=== PATIENT | male | born 1975 | race Asian ===

== ENCOUNTER 2017-01-21 10:46 | Emergency (ER) | payer MEDICAID ==
[~2017-01-21] VITALS: Ht 165.1 cm; Wt 81.6 kg
[2017-01-21 11:38] VITALS: BP 130/52
== END 2017-01-21 11:51 | disposition home or self-care (01) ==
LOC: ER 10:46
DX: H52.7 Unspecified disorder of refraction (principal)

== ENCOUNTER 2021-06-25 13:39 | Inpatient (IN) | payer MEDICAID ==
[~2021-06-25] VITALS: Ht 165.1 cm; Wt 77.7 kg
[2021-06-25] MEDS: SODIUM CHLORIDE 0.9% 1,000 ML IV SCH (02:35)
[2021-06-25 15:11] LABS: Basophils # (auto) 0 10 ^3/uL (0-0.2); Basophils % (auto) 0.1 % (0.0-2.0); Eosinophils # (auto) 0 10 ^3/uL (0-0.8); Eosinophils % (auto) 0.1 % (0.0-7.0); Hematocrit 34.1 % (41.0-53.0); Hemoglobin 11.5 g/dL (13.5-17.5); Lymphocytes # (auto) 1.2 10 ^3/uL (0.4-5.4); Lymphocytes % (auto) 12.6 % (10.0-50.0); Mean Corpuscular Hemoglobin 27.5 pg (28.0-32.0); Mean Corpuscular Hgb Conc. 33.7 g/dL (32.0-36.0); Mean Corpuscular Volume 81.5 fL (80.0-100.0); Monocytes # (auto) 0.8 10 ^3/uL (0-1.3); Monocytes % (auto) 8.5 % (0.0-12.0); Neutrophils # (auto) 7.6 10 ^3/uL (1.6-8.6); Neutrophils % (auto) 78.7 % (37.0-80.0); Nucleated Red Blood Cells % 0.1 %; Red Blood Cells 4.19 10^6/uL (4.5-5.90); Red Cell Distribution Width 15.6 % (11.8-14.3); White Blood Cell 9.6 10^3/uL (4.4-10.8)
[2021-06-25 15:26] LABS: Albumin 3.2 g/dL (3.4-5.0); Calcium 8.3 mg/dL (8.5-10.1); Potassium 3.7 mmol/L (3.5-5.1)
[2021-06-25 15:28] LABS: BUN/Creatinine Ratio 20.5
[2021-06-25 15:30] LABS: Bilirubin, Total 0.8 mg/dL (0.2-1.0); Total Protein 7.7 g/dL (6.4-8.2)
[2021-06-25] MEDS ORDERED: cefTRIAXone 1GM/50ML D5W 50 ML IV ONE (17:15)
[2021-06-25] MEDS ORDERED: metroNIDAZOLE 500MG/100ML 100 ML IV ONE (17:15)
[2021-06-25] MEDS ORDERED: ONDANSETRON HCL 4 MG/2 ML VIAL IV ONE (17:30)
[2021-06-25] MEDS ORDERED: MORPHINE SULFATE 4 MG/ML SYR/VIAL IV ONE (17:30)
[2021-06-25] MEDS ORDERED: ONDANSETRON HCL 4 MG/2 ML VIAL IV PRN (18:15)
[2021-06-25] MEDS ORDERED: MORPHINE SULFATE 4 MG/ML SYR/VIAL IV PRN (18:15)
[2021-06-25] MEDS ORDERED: MORPHINE SULFATE INJECTION 2 MG/ML SYRG IV PRN (18:15)
[2021-06-25] MEDS ORDERED: DEXTROSE (50%) 50ML SYRG IV PRN (19:15)
[2021-06-25 20:25] LABS: INR 1.21 (0.9-1.15)
[2021-06-25 20:35] LABS: Blood Alcohol < 3.0 mg/dL (0-5); Cholesterol 163 mg/dL (< 200); Lipase 247 U/L (73-393)
[2021-06-25 20:37] LABS: Bilirubin, Total 0.5 mg/dL (0.2-1.0); HDL Cholesterol 61 mg/dL (40-59); LDL Cholesterol 89 mg/dL (< 100); Triglycerides 55 mg/dL (< 150)
[2021-06-25] MEDS ORDERED: PANTOPRAZOLE 40 MG/10 ML VIAL INJ IV ONE ×2 (22:30→23:15)
[2021-06-25] MEDS ORDERED: LORazepam 2MG/ML-1ML VIAL IM ONE (23:15)
[2021-06-25 23:45] VITALS: BP 103/63
[2021-06-25] MEDS: ACCU-CHEK COMFORT CURVE STRIP VI SCH (23:57)
[2021-06-26] MEDS: InsuLIN REG 1unit/0.01ml Soln (100units/ml) SC SCH ×4 (00:01→17:11)
[2021-06-26] MEDS ORDERED: BRIM0.2S17 EACHEYE (00:12)
[2021-06-26] MEDS ORDERED: DORZ2SOL18 (00:12)
[2021-06-26 00:18] VITALS: BP 103/63
[2021-06-26 04:44] VITALS: BP 99/56
[2021-06-26] MEDS: SODIUM CHLORIDE 0.9% 1,000 ML IV SCH ×4 (06:00→19:15)
[2021-06-26] MEDS: ACCU-CHEK COMFORT CURVE STRIP VI SCH ×3 (06:04→17:11)
[2021-06-26] MEDS: metroNIDAZOLE 500MG/100ML 100 ML IV SCH ×3 (06:05→22:08)
[2021-06-26 06:36] LABS: Basophils # (auto) 0 10 ^3/uL (0-0.2); Basophils % (auto) 0.3 % (0.0-2.0); Eosinophils # (auto) 0 10 ^3/uL (0-0.8); Eosinophils % (auto) 0.4 % (0.0-7.0); Hematocrit 28.9 % (41.0-53.0); Hemoglobin 9.9 g/dL (13.5-17.5); Lymphocytes # (auto) 2.4 10 ^3/uL (0.4-5.4); Lymphocytes % (auto) 22.4 % (10.0-50.0); Mean Corpuscular Hemoglobin 28.1 pg (28.0-32.0); Mean Corpuscular Hgb Conc. 34.2 g/dL (32.0-36.0); Mean Corpuscular Volume 82.3 fL (80.0-100.0); Monocytes # (auto) 1.3 10 ^3/uL (0-1.3); Monocytes % (auto) 12.3 % (0.0-12.0); Neutrophils % (auto) 64.6 % (37.0-80.0); Nucleated Red Blood Cells % 0.1 %; Red Blood Cells 3.52 10^6/uL (4.5-5.90); Red Cell Distribution Width 15.4 % (11.8-14.3); White Blood Cell 10.9 10^3/uL (4.4-10.8)
[2021-06-26 06:53] LABS: Potassium 3.6 mmol/L (3.5-5.1)
[2021-06-26 07:04] LABS: Albumin 2.5 g/dL (3.4-5.0); BUN/Creatinine Ratio 18.7; Bilirubin, Total 0.7 mg/dL (0.2-1.0); Calcium 7.4 mg/dL (8.5-10.1); Total Protein 6.4 g/dL (6.4-8.2)
[2021-06-26 09:00] VITALS: BP 93/51
[2021-06-26] MEDS: ENOXAPARIN SOD 40 MG/0.4 ML SYRINGE SC SCH (09:43)
[2021-06-26] MEDS: PANTOPRAZOLE 40 MG/10 ML VIAL INJ IV SCH ×2 (09:43→22:08)
[2021-06-26] MEDS: cefTRIAXone 1GM/50ML D5W 50 ML IV SCH (09:43)
[2021-06-26] MEDS ORDERED: PANTOPRAZOLE 40 MG/10 ML VIAL INJ IV SCH (10:00)
[2021-06-26 13:00] VITALS: BP 90/52
[2021-06-26 16:35] VITALS: BP 99/57
[2021-06-26 22:00] VITALS: BP 89/60
[2021-06-27] MEDS: ACCU-CHEK COMFORT CURVE STRIP VI SCH ×5 (00:16→23:25)
[2021-06-27] MEDS: SODIUM CHLORIDE 0.9% 1,000 ML IV SCH ×2 (03:35→11:55)
[2021-06-27 05:00] VITALS: BP 96/59
[2021-06-27] MEDS: metroNIDAZOLE 500MG/100ML 100 ML IV SCH ×3 (06:08→21:26)
[2021-06-27] MEDS: InsuLIN REG 1unit/0.01ml Soln (100units/ml) SC SCH ×5 (06:09→23:24)
[2021-06-27 09:00] VITALS: BP 99/62
[2021-06-27] MEDS ORDERED: CLINIMIX PER PHARMACY 0 ML IV SCH (09:15)
[2021-06-27] MEDS: PANTOPRAZOLE 40 MG/10 ML VIAL INJ IV SCH ×2 (10:48→21:26)
[2021-06-27] MEDS: cefTRIAXone 1GM/50ML D5W 50 ML IV SCH (10:48)
[2021-06-27] MEDS: ENOXAPARIN SOD 40 MG/0.4 ML SYRINGE SC SCH (10:49)
[2021-06-27] MEDS ORDERED: GASTROGRAFIN 120 ML SOL ONE (11:40)
[2021-06-27 12:04] LABS: Potassium 3.7 mmol/L (3.5-5.1)
[2021-06-27 12:21] LABS: Albumin 2.4 g/dL (3.4-5.0); Bilirubin, Total 0.6 mg/dL (0.2-1.0); Calcium 7.9 mg/dL (8.5-10.1); Magnesium 2.3 mg/dL (1.6-2.6); Phosphorus 3.1 mg/dL (2.5-4.90); Pre Albumin 8.8 mg/dL (20.0-40.0); Total Protein 6.4 g/dL (6.4-8.2)
[2021-06-27 13:00] VITALS: BP 89/51
[2021-06-27 13:45] LABS: Hepatitis A Ab IgM Negative
[2021-06-27 13:46] LABS: Hepatitis B Core IgM Negative; Hepatitis C Antibody Negative (Negative)
[2021-06-27 17:00] VITALS: BP 89/52
[2021-06-27] MEDS ORDERED: ALBUMIN 25% 100 ML IV ONE (18:15)
[2021-06-27] MEDS: AMINO ACID INFUSION IN D10W 1,000 ML IV SCH (19:42)
[2021-06-27 22:00] VITALS: BP 98/50
[2021-06-28] VITALS (8 sets, daily range): BP systolic 78–94; BP diastolic 40–55
[2021-06-28] MEDS ORDERED: DEXTROSE (50%) 50ML SYRG IV SCH
[2021-06-28 00:14] LABS: Urine Bacteria NONE SEEN /hpf (None Seen); Urine Blood Negative /uL (Negative); Urine Mucus FEW (None Seen); Urine Specific Gravity 1.036 (1.001-1.035); Urine WBC 7 /hpf (0 - 3)
[2021-06-28 00:22] LABS: Amphetamine Screen, Urine NEGATIVE (NEGATIVE); Barbiturate Scree,Urine NEGATIVE (NEGATIVE); Benzodiazephine Screen, Urine NEGATIVE (NEGATIVE); Cannabinoid Screen, Urine NEGATIVE (NEGATIVE); Cocaine Screen, Urine NEGATIVE (NEGATIVE); Opiate Scree,Urine NEGATIVE (NEGATIVE); Phencyclidine Screen, Urine NEGATIVE (NEGATIVE)
[2021-06-28] MEDS: SODIUM CHLORIDE 0.9% 1,000 ML IV SCH ×4 (00:28→21:15)
[2021-06-28] MEDS: metroNIDAZOLE 500MG/100ML 100 ML IV SCH ×3 (05:24→22:07)
[2021-06-28] MEDS: ACCU-CHEK COMFORT CURVE STRIP VI SCH ×4 (05:25→23:32)
[2021-06-28] MEDS: InsuLIN REG 1unit/0.01ml Soln (100units/ml) SC SCH ×4 (05:30→23:33)
[2021-06-28 07:15] LABS: Albumin 2.6 g/dL (3.4-5.0); BUN/Creatinine Ratio 25.8; Bilirubin, Total 0.6 mg/dL (0.2-1.0); Calcium 7.4 mg/dL (8.5-10.1); Phosphorus 1.6 mg/dL (2.5-4.90)
[2021-06-28] MEDS ORDERED: LIDOCAINE VISCOUS 2% 15ML UD ONE (08:20)
[2021-06-28] MEDS ORDERED: POTASSIUM CHL 20MEQ/100ML 100 ML IV ONE (08:45)
[2021-06-28] MEDS: cefTRIAXone 1GM/50ML D5W 50 ML IV SCH (09:44)
[2021-06-28] MEDS: ENOXAPARIN SOD 40 MG/0.4 ML SYRINGE SC SCH (09:45)
[2021-06-28] MEDS: PANTOPRAZOLE 40 MG/10 ML VIAL INJ IV SCH ×2 (09:46→22:05)
[2021-06-28] MEDS ORDERED: POTASSIUM PHOSPHATE 44 MEQ in D5W 5% 250 ML IV ONE (11:00)
[2021-06-28] MEDS ORDERED: METOCLOPRAMIDE HCL 5MG/ml INJ 2ml VIAL IV PRN (11:30)
[2021-06-28] MEDS ORDERED: ONDANSETRON HCL 4 MG/2 ML VIAL IV PRN (11:30)
[2021-06-28] MEDS ORDERED: fentaNYL CITRATE 100 MCG/2 ML VL IV PRN (11:30)
[2021-06-28] MEDS ORDERED: ePHEDrine SULFATE 50 MG/ML AMP IV PRN (11:30)
[2021-06-28] MEDS: SUCRALFATE 1 GM/10 ML ORAL SUSP PO SCH ×3 (12:37→22:05)
[2021-06-28] MEDS ORDERED: SODIUM CHLORIDE 0.9% 1,000 ML IV ONE (17:00)
[2021-06-28 18:08] LABS: Hemoglobin 8.1 g/dL (13.5-17.5)
[2021-06-28 18:10] LABS: Hematocrit 24.4 % (41.0-53.0)
[2021-06-28] MEDS: AMINO ACID INFUSION IN D10W 1,000 ML IV SCH ×2 (19:49→20:00)
[2021-06-29] VITALS (8 sets, daily range): BP systolic 74–101; BP diastolic 42–58
[2021-06-29] MEDS: SODIUM CHLORIDE 0.9% 1,000 ML IV SCH ×3 (05:52→19:45)
[2021-06-29] MEDS: ACCU-CHEK COMFORT CURVE STRIP VI SCH ×3 (06:04→17:51)
[2021-06-29] MEDS: InsuLIN REG 1unit/0.01ml Soln (100units/ml) SC SCH ×3 (06:05→17:50)
[2021-06-29] MEDS: metroNIDAZOLE 500MG/100ML 100 ML IV SCH ×2 (06:06→14:25)
[2021-06-29 06:27] LABS: Basophils # (auto) 0 10 ^3/uL (0-0.2); Eosinophils # (auto) 0 10 ^3/uL (0-0.8); Eosinophils % (auto) 1.3 % (0.0-7.0); Monocytes # (auto) 0.3 10 ^3/uL (0-1.3); Neutrophils # (auto) 1.8 10 ^3/uL (1.6-8.6); Nucleated Red Blood Cells % 0.1 %
[2021-06-29 06:30] LABS: Basophils % (auto) 0.2 % (0.0-2.0); Hematocrit 24.3 % (41.0-53.0); Hemoglobin 8.3 g/dL (13.5-17.5); Lymphocytes # (auto) 0.9 10 ^3/uL (0.4-5.4); Lymphocytes % (auto) 30.3 % (10.0-50.0); Mean Corpuscular Volume 82.3 fL (80.0-100.0); Monocytes % (auto) 10.6 % (0.0-12.0); Neutrophils % (auto) 57.6 % (37.0-80.0); Red Blood Cells 2.95 10^6/uL (4.5-5.90); Red Cell Distribution Width 15.8 % (11.8-14.3); White Blood Cell 3.1 10^3/uL (4.4-10.8)
[2021-06-29] MEDS: SUCRALFATE 1 GM/10 ML ORAL SUSP PO SCH ×5 (06:34→22:03)
[2021-06-29 06:59] LABS: BUN/Creatinine Ratio 18.7
[2021-06-29 07:00] LABS: Albumin 2.3 g/dL (3.4-5.0); Bilirubin, Total 0.5 mg/dL (0.2-1.0); Calcium 7.1 mg/dL (8.5-10.1); Magnesium 2.2 mg/dL (1.6-2.6); Total Protein 5.2 g/dL (6.4-8.2)
[2021-06-29] MEDS ORDERED: CALCIUM GLUC 1,000mg/50ml-NS 50 ML IV ONE (08:30)
[2021-06-29] MEDS: PANTOPRAZOLE 40 MG/10 ML VIAL INJ IV SCH ×2 (09:40→22:03)
[2021-06-29] MEDS: cefTRIAXone 1GM/50ML D5W 50 ML IV SCH (09:40)
[2021-06-29] MEDS: ENOXAPARIN SOD 40 MG/0.4 ML SYRINGE SC SCH (09:41)
[2021-06-29] MEDS: POTASSIUM CHL 20MEQ/100ML 100 ML IV SCH ×2 (10:42→12:36)
[2021-06-29] MEDS ORDERED: POTASSIUM PHOSPHATE 44 MEQ in D5W 5% 250 ML IV ONE (13:00)
[2021-06-29] MEDS ORDERED: NOREPINEPHRINE 8 MG/250ML KIT 250 ML IV SCH (13:15)
[2021-06-29] MEDS ORDERED: SODIUM CHLORIDE 0.9% 1,000 ML IV ONE (13:45)
[2021-06-29] MEDS ORDERED: PHENYLEPHRINE IV 250 ML IV SCH (16:00)
[2021-06-29] MEDS ORDERED: MIDODRINE HCL 10 MG TAB PO ONE (17:15)
[2021-06-29] MEDS: AMINO ACID INFUSION IN D10W 1,000 ML IV SCH (22:55)
[2021-06-30] MEDS: InsuLIN REG 1unit/0.01ml Soln (100units/ml) SC SCH ×4 (00:49→17:25)
[2021-06-30] MEDS: ACCU-CHEK COMFORT CURVE STRIP VI SCH ×4 (00:49→17:25)
[2021-06-30] MEDS: SODIUM CHLORIDE 0.9% 1,000 ML IV SCH ×4 (02:25→22:56)
[2021-06-30 05:00] VITALS: BP 102/65
[2021-06-30] MEDS: SUCRALFATE 1 GM/10 ML ORAL SUSP PO SCH ×4 (06:10→22:22)
[2021-06-30 06:16] LABS: Basophils # (auto) 0 10 ^3/uL (0-0.2); Basophils % (auto) 0.5 % (0.0-2.0); Eosinophils # (auto) 0.1 10 ^3/uL (0-0.8); Eosinophils % (auto) 3.2 % (0.0-7.0); Hematocrit 26.7 % (41.0-53.0); Hemoglobin 9.1 g/dL (13.5-17.5); Lymphocytes # (auto) 1.1 10 ^3/uL (0.4-5.4); Lymphocytes % (auto) 39.7 % (10.0-50.0); Mean Corpuscular Hemoglobin 27.8 pg (28.0-32.0); Mean Corpuscular Hgb Conc. 34.3 g/dL (32.0-36.0); Mean Corpuscular Volume 80.9 fL (80.0-100.0); Monocytes # (auto) 0.4 10 ^3/uL (0-1.3); Monocytes % (auto) 14.4 % (0.0-12.0); Neutrophils # (auto) 1.2 10 ^3/uL (1.6-8.6); Neutrophils % (auto) 42.2 % (37.0-80.0); Nucleated Red Blood Cells % 0.1 %; Red Cell Distribution Width 15.5 % (11.8-14.3); White Blood Cell 2.7 10^3/uL (4.4-10.8)
[2021-06-30 06:31] LABS: Potassium 3.2 mmol/L (3.5-5.1)
[2021-06-30 06:47] LABS: Albumin 2.4 g/dL (3.4-5.0); BUN/Creatinine Ratio 8.7; Bilirubin, Total 0.4 mg/dL (0.2-1.0); Calcium 7.5 mg/dL (8.5-10.1); Phosphorus 2.1 mg/dL (2.5-4.90); Total Protein 5.6 g/dL (6.4-8.2)
[2021-06-30] MEDS ORDERED: POTASSIUM PHOSPHATE 44 MEQ in D5W 5% 250 ML IV ONE (08:30)
[2021-06-30] MEDS: PANTOPRAZOLE 40 MG/10 ML VIAL INJ IV SCH ×2 (08:30→22:22)
[2021-06-30] MEDS: cefTRIAXone 1GM/50ML D5W 50 ML IV SCH (08:30)
[2021-06-30 09:00] VITALS: BP 114/67
[2021-06-30] MEDS ORDERED: ZOLPIDEM TARTRATE 5 MG TAB PO PRN (09:15)
[2021-06-30] MEDS ORDERED: MIDODRINE HCL 10 MG TAB PO SCH (10:00)
[2021-06-30 13:00] VITALS: BP 113/64
[2021-06-30 17:00] VITALS: BP 101/61
[2021-06-30 20:00] VITALS: BP 110/60
[2021-06-30] MEDS: AMINO ACID INFUSION IN D10W 1,000 ML IV SCH (20:48)
[2021-06-30 22:00] VITALS: BP 103/58
[2021-06-30] MEDS: MIDODRINE HCL 10 MG TAB PO SCH (22:23)
[2021-07-01] MEDS: SODIUM CHLORIDE 0.9% 1,000 ML IV SCH ×2 (00:11→11:45)
[2021-07-01] MEDS: ACCU-CHEK COMFORT CURVE STRIP VI SCH ×3 (00:21→12:00)
[2021-07-01 05:00] VITALS: BP 95/63
[2021-07-01] MEDS: InsuLIN REG 1unit/0.01ml Soln (100units/ml) SC SCH ×3 (06:00→12:00)
[2021-07-01] MEDS: SUCRALFATE 1 GM/10 ML ORAL SUSP PO SCH ×2 (06:08→11:30)
[2021-07-01 06:11] LABS: Basophils # (auto) 0 10 ^3/uL (0-0.2); Basophils % (auto) 0.4 % (0.0-2.0); Eosinophils # (auto) 0.1 10 ^3/uL (0-0.8); Eosinophils % (auto) 2.2 % (0.0-7.0); Hematocrit 26.2 % (41.0-53.0); Lymphocytes # (auto) 0.9 10 ^3/uL (0.4-5.4); Mean Corpuscular Hemoglobin 27.9 pg (28.0-32.0); Mean Corpuscular Hgb Conc. 34.6 g/dL (32.0-36.0); Mean Corpuscular Volume 80.8 fL (80.0-100.0); Monocytes # (auto) 0.6 10 ^3/uL (0-1.3); Monocytes % (auto) 16.7 % (0.0-12.0); Neutrophils # (auto) 1.8 10 ^3/uL (1.6-8.6); Neutrophils % (auto) 52.7 % (37.0-80.0); Red Blood Cells 3.24 10^6/uL (4.5-5.90); Red Cell Distribution Width 15.4 % (11.8-14.3); White Blood Cell 3.4 10^3/uL (4.4-10.8)
[2021-07-01 06:24] LABS: Potassium 3.4 mmol/L (3.5-5.1)
[2021-07-01 06:40] LABS: Albumin 2.4 g/dL (3.4-5.0); BUN/Creatinine Ratio 9.1; Bilirubin, Total 0.4 mg/dL (0.2-1.0); Calcium 7.4 mg/dL (8.5-10.1); Magnesium 2.2 mg/dL (1.6-2.6); Phosphorus 3.2 mg/dL (2.5-4.90); Total Protein 5.5 g/dL (6.4-8.2)
[2021-07-01 08:00] VITALS: BP 102/59
[2021-07-01] MEDS: PANTOPRAZOLE 40 MG/10 ML VIAL INJ IV SCH (08:26)
[2021-07-01] MEDS: cefTRIAXone 1GM/50ML D5W 50 ML IV SCH (08:26)
[2021-07-01] MEDS: MIDODRINE HCL 10 MG TAB PO SCH (08:26)
[2021-07-01] MEDS ORDERED: PANT40T PO (09:25)
[2021-07-01] MEDS ORDERED: SUCR1TAB22 OR (09:25)
[2021-07-01 11:52] VITALS: BP 102/59
[2021-07-01 12:00] VITALS: BP 83/50
[2021-07-01] MEDS ORDERED: MIDO2.5T3 PO (12:19)
[2021-07-01 12:22] VITALS: BP 102/59
[2021-07-01] MEDS ORDERED: MIDODRINE HCL 10 MG TAB PO ONE (12:45)
== END 2021-07-01 16:45 | disposition home or self-care (01) | DRG 241 ==
LOC: ER 13:39 → OVERFLOW 18:15 → CENTRAL 23:22
PROVIDERS: ADMIT Registered Nurse; ATTEND Family Medicine
PROC: 0D9670Z Drainage of Stomach with Drainage Device, Via Natural or Artificial Opening (ICD-10-PCS; 2021-06-26)
PROC: 05HB33Z Insertion of Infusion Device into Right Basilic Vein, Percutaneous Approach (ICD-10-PCS; 2021-06-27)
PROC: B54MZZA Ultrasonography of Right Upper Extremity Veins, Guidance (ICD-10-PCS; 2021-06-27)
PROC: 0DB68ZX Excision of Stomach, Via Natural or Artificial Opening Endoscopic, Diagnostic (ICD-10-PCS; 2021-06-28)
PROC: 0DB38ZX Excision of Lower Esophagus, Via Natural or Artificial Opening Endoscopic, Diagnostic (ICD-10-PCS; 2021-06-28)
PROC: 30233K1 Transfusion of Nonautologous Frozen Plasma into Peripheral Vein, Percutaneous Approach (ICD-10-PCS; 2021-06-28)
PROC: 0DB98ZX Excision of Duodenum, Via Natural or Artificial Opening Endoscopic, Diagnostic (ICD-10-PCS; principal; 2021-06-28 10:45)
DX: K26.9 Duodenal ulcer, unspecified as acute or chronic, without hemorrhage or perforation (principal); N17.9 Acute kidney failure, unspecified; D69.6 Thrombocytopenia, unspecified; E44.1 Mild protein-calorie malnutrition; E11.22 Type 2 diabetes mellitus with diabetic chronic kidney disease; I95.9 Hypotension, unspecified; E88.09 Other disorders of plasma-protein metabolism, not elsewhere classified; K22.10 Ulcer of esophagus without bleeding; D50.9 Iron deficiency anemia, unspecified; E11.65 Type 2 diabetes mellitus with hyperglycemia; K29.70 Gastritis, unspecified, without bleeding; E66.9 Obesity, unspecified; K44.9 Diaphragmatic hernia without obstruction or gangrene; N18.2 Chronic kidney disease, stage 2 (mild); E87.6 Hypokalemia; F17.210 Nicotine dependence, cigarettes, uncomplicated; K29.90 Gastroduodenitis, unspecified, without bleeding; M79.18 Myalgia, other site; R74.01 Elevation of levels of liver transaminase levels; R74.8 Abnormal levels of other serum enzymes; K21.9 Gastro-esophageal reflux disease without esophagitis; Z85.038 Personal history of other malignant neoplasm of large intestine; Z87.11 Personal history of peptic ulcer disease; Z87.19 Personal history of other diseases of the digestive system; Z90.49 Acquired absence of other specified parts of digestive tract; Z68.27 Body mass index [BMI] 27.0-27.9, adult
CPT/HCPCS: 36415; 71045; 74176; 74246; 76705; 80053; 80061; 80069; 80074; 80307; 80320; 81001; 82040; 82247; 82533; 82962; 83036; 83605; 83690; 83735; 83880; 84100; 84478; 84484; 85014; 85018; 85025; 85610; 86850; 86900; 86901; 87040; 93005; 93306; 96365; 96367; 96375; C9113; G0378; J0696; J1815; J2405; J3480; J3490; J7060; P9047

== ENCOUNTER 2021-10-06 17:35 | Emergency (ER) | payer MEDICAID ==
[~2021-10-06] VITALS: Ht 165.1 cm; Wt 90.7 kg
[~2021-10-06 17:35] MED LIST: BRIM0.2S17 EACHEYE; DORZ2SOL18; MIDO2.5T3 PO; PANT40T PO; SUCR1TAB22 OR
[2021-10-06 17:47] VITALS: BP 122/58
[2021-10-06] MEDS ORDERED: ACETAMINOPHEN 325 MG TAB PO ONE (18:30)
[2021-10-06 19:37] LABS: Basophils # (auto) 0 10 ^3/uL (0-0.2); Eosinophils # (auto) 0.1 10 ^3/uL (0-0.8); Hematocrit 25.1 % (41.0-53.0); Hemoglobin 8.2 g/dL (13.5-17.5); Mean Corpuscular Hgb Conc. 32.8 g/dL (32.0-36.0); White Blood Cell 4.8 10^3/uL (4.4-10.8)
[2021-10-06 19:40] LABS: Eosinophils % (auto) 1.2 % (0.0-7.0); Lymphocytes # (auto) 2.6 10 ^3/uL (0.4-5.4); Lymphocytes % (auto) 53.3 % (10.0-50.0); Mean Corpuscular Hemoglobin 24.9 pg (28.0-32.0); Mean Corpuscular Volume 75.9 fL (80.0-100.0); Monocytes # (auto) 0.3 10 ^3/uL (0-1.3); Monocytes % (auto) 7.2 % (0.0-12.0); Neutrophils # (auto) 1.8 10 ^3/uL (1.6-8.6); Neutrophils % (auto) 37.3 % (37.0-80.0)
[2021-10-06 19:41] LABS: Red Cell Distribution Width 21.6 % (11.8-14.3)
[2021-10-06 19:57] LABS: Calcium 7.4 mg/dL (8.5-10.1); Potassium 3.9 mmol/L (3.5-5.1)
[2021-10-06 20:01] LABS: Albumin 2.4 g/dL (3.4-5.0)
[2021-10-06 20:05] LABS: Bilirubin, Total 0.6 mg/dL (0.2-1.0)
== END 2021-10-06 23:51 | disposition left against medical advice (07) ==
LOC: ER 17:35
DX: R10.9 Unspecified abdominal pain (principal); R93.2 Abnormal findings on diagnostic imaging of liver and biliary tract; E11.9 Type 2 diabetes mellitus without complications
CPT/HCPCS: 36415; 74176; 80053; 83690; 85025

== ENCOUNTER 2021-10-07 17:17 | Inpatient (IN) | payer MEDICAID ==
[~2021-10-07] VITALS: Ht 165.1 cm; Wt 16.0 kg
[2021-10-07] MEDS ORDERED: LACTATED RINGER'S 1,000 ML IV ONE (18:15)
[2021-10-07] MEDS ORDERED: metroNIDAZOLE 500MG/100ML 100 ML IV ONE (18:15)
[2021-10-07] MEDS ORDERED: CIPROFLOXACIN 400MG/200ML 200 ML IV ONE (18:15)
[2021-10-07 19:52] LABS: Red Blood Cells 3.04 10^6/uL (4.5-5.90)
[2021-10-07 19:54] LABS: Hematocrit 23.1 % (41.0-53.0); Hemoglobin 7.5 g/dL (13.5-17.5); Mean Corpuscular Hemoglobin 24.6 pg (28.0-32.0); Mean Corpuscular Hgb Conc. 32.3 g/dL (32.0-36.0); White Blood Cell 4.7 10^3/uL (4.4-10.8)
[2021-10-07 20:16] LABS: Albumin 2.2 g/dL (3.4-5.0); BUN/Creatinine Ratio 14.8; Calcium 7.7 mg/dL (8.5-10.1); Potassium 3.9 mmol/L (3.5-5.1)
[2021-10-07 20:21] LABS: Red Cell Distribution Width 21.8 % (11.8-14.3)
[2021-10-07 20:22] LABS: Band Neutrophils % (manual) 0; Basophils % (manual) 0 (0.0-2.0); Blast Cells 0; Metamyelocytes % 0; Myelocytes % 0; Promyelocytes % 0; Reactive Lymphocytes 0
[2021-10-07 20:25] LABS: Bilirubin, Total 0.5 mg/dL (0.2-1.0); Total Protein 6.7 g/dL (6.4-8.2)
[2021-10-07 20:53] LABS: Eosinophils % (manual) 1 (0-7); Lymphocytes % (manual) 32 (10.0-50.0); Monocytes % (manual) 2 (0-12)
[2021-10-07] MEDS ORDERED: MORPHINE SULFATE 4 MG/ML SYR/VIAL IM ONE (21:00)
[2021-10-07] MEDS ORDERED: PANTOPRAZOLE 40mg/50ML NS AE 50 ML IV ONE (22:45)
[2021-10-07] MEDS ORDERED: PANTOPRAZOLE 80 MG in SODIUM CHL 0.9% 100 ML IV ONE (22:45)
[2021-10-08] MEDS ORDERED: LORazepam 0.5 MG TAB PO PRN
[2021-10-08] MEDS ORDERED: ONDANSETRON HCL 4 MG/2 ML VIAL IV PRN
[2021-10-08] MEDS ORDERED: HYDROcodone-ACET 5/325MG TAB PO PRN
[2021-10-08] MEDS ORDERED: MORPHINE SULFATE INJ 2 MG/ml SYRG IV PRN
[2021-10-08] MEDS ORDERED: ACETAMINOPHEN 325 MG TAB PO PRN
[2021-10-08] MEDS ORDERED: DOCUSATE SOD 100 MG CAP PO PRN
[2021-10-08] MEDS ORDERED: DEXTROSE (50%) 50ML SYRG IV PRN
[2021-10-08 06:44] LABS: Calcium 7.3 mg/dL (8.5-10.1); Potassium 4.2 mmol/L (3.5-5.1)
[2021-10-08 06:48] LABS: BUN/Creatinine Ratio 20.8
[2021-10-08 07:08] LABS: Basophils # (auto) 0 10 ^3/uL (0-0.2); Eosinophils # (auto) 0.1 10 ^3/uL (0-0.8); Hematocrit 23.1 % (41.0-53.0); Hemoglobin 7.3 g/dL (13.5-17.5); Mean Corpuscular Hemoglobin 24.3 pg (28.0-32.0); Mean Corpuscular Hgb Conc. 31.7 g/dL (32.0-36.0); Mean Corpuscular Volume 76.6 fL (80.0-100.0); Monocytes # (auto) 0.6 10 ^3/uL (0-1.3); Red Blood Cells 3.02 10^6/uL (4.5-5.90); White Blood Cell 6.3 10^3/uL (4.4-10.8)
[2021-10-08 07:18] LABS: Eosinophils % (auto) 1.4 % (0.0-7.0); Lymphocytes % (auto) 28.9 % (10.0-50.0); Monocytes % (auto) 10.1 % (0.0-12.0); Neutrophils % (auto) 59.2 % (37.0-80.0); Red Cell Distribution Width 21.6 % (11.8-14.3)
[2021-10-08 07:19] LABS: Basophils % (auto) 0.4 % (0.0-2.0)
[2021-10-08 07:22] LABS: Lymphocytes # (auto) 1.8 10 ^3/uL (0.4-5.4); Neutrophils # (auto) 3.7 10 ^3/uL (1.6-8.6)
[2021-10-08] MEDS: InsuLIN REG 1unit/0.01ml Soln (100units/ml) SC SCH ×4 (10:22→18:00)
[2021-10-08] MEDS: ACCU-CHEK COMFORT CURVE STRIP VI SCH ×4 (10:22→18:35)
[2021-10-08] MEDS: PANTOPRAZOLE 40 MG/10 ML VIAL INJ IV SCH ×2 (10:23→22:15)
[2021-10-08] MEDS: SODIUM CHLORIDE 0.9% 1,000 ML IV SCH ×2 (10:24→16:40)
[2021-10-08] MEDS: metroNIDAZOLE 500MG/100ML 100 ML IV SCH ×4 (10:25→22:15)
[2021-10-08] MEDS: B-COMPLEX W/ C & FOLIC ACID(NEPHROVITE TAB) PO SCH (10:26)
[2021-10-08] MEDS ORDERED: metroNIDAZOLE 500MG/100ML 100 ML IV SCH (11:45)
[2021-10-08 22:00] VITALS: BP 91/46
[2021-10-09] MEDS: ACCU-CHEK COMFORT CURVE STRIP VI SCH ×3 (00:12→11:36)
[2021-10-09] MEDS: metroNIDAZOLE 500MG/100ML 100 ML IV SCH ×2 (03:48→11:08)
[2021-10-09 05:00] VITALS: BP 93/45
[2021-10-09] MEDS: InsuLIN REG 1unit/0.01ml Soln (100units/ml) SC SCH ×3 (06:00→11:35)
[2021-10-09 08:00] VITALS: BP 100/57
[2021-10-09 08:09] VITALS: BP 100/57
[2021-10-09] MEDS: B-COMPLEX W/ C & FOLIC ACID(NEPHROVITE TAB) PO SCH (11:08)
[2021-10-09] MEDS: PANTOPRAZOLE 40 MG/10 ML VIAL INJ IV SCH (11:08)
[2021-10-09] MEDS: SODIUM CHLORIDE 0.9% 1,000 ML IV SCH (11:21)
[2021-10-09] MEDS ORDERED: PANT40T PO (11:54)
[2021-10-09 12:35] VITALS: BP 100/57
[2021-10-09 14:00] VITALS: BP 98/55
[2021-10-09 22:02] LABS: Urine Bacteria NONE SEEN /hpf (None Seen); Urine Blood Negative /uL (Negative); Urine Mucus FEW (None Seen); Urine Specific Gravity 1.016 (1.001-1.035); Urine WBC 2 /hpf (0 - 3)
== END 2021-10-09 17:12 | disposition home or self-care (01) ==
LOC: ER 17:17 → OVERFLOW 10-08 00:02 → WEST WING 10-08 14:07 → OVERFLOW 10-08 14:07 → WEST WING 10-08 14:19
PROVIDERS: ADMIT Hospitalist; ATTEND Hospitalist
DX: K80.20 Calculus of gallbladder without cholecystitis without obstruction (principal); K74.60 Unspecified cirrhosis of liver; D53.9 Nutritional anemia, unspecified; E11.9 Type 2 diabetes mellitus without complications; K27.9 Peptic ulcer, site unspecified, unspecified as acute or chronic, without hemorrhage or perforation; Z87.11 Personal history of peptic ulcer disease; Z79.84 Long term (current) use of oral hypoglycemic drugs
CPT/HCPCS: 36415; 76705; 80048; 80053; 80061; 81001; 82962; 83036; 83690; 84484; 85007; 85025; 85027; 86850; 86900; 86901; 96365; 96368; C9113; G0378; J1815; J3490